=== PATIENT | female | born 1960 | race Caucasian/White ===

== ENCOUNTER 2018-11-15 12:53 | Observation (INO) ==
[2018-11-15] MEDS ORDERED: Ipratropium/Albuterol Neb 3 ML ONE (13:02)
[2018-11-15] MEDS ORDERED: 0.9 % Sodium Chloride 1,000 ML ONE (13:12)
[2018-11-15 13:16] LABS: Basophils % 0.1 %; Eosinophils # 0.1 K/mcL (0.0-0.6); Eosinophils % 1.3 %; Hematocrit 38.2 % (35.3-44.9); Hemoglobin 12.9 g/dL (11.5-15.4); Immature Granulocytes % 0.5 % (0-4); Lymphocytes # 2.1 K/mcL (0.6-4.6); Lymphocytes % 21.7 %; Mean Corpuscular HGB Conc 33.8 g/dL (31.6-35.5); Mean Corpuscular Hemoglobin 28.1 pg (28.0-33.3); Mean Corpuscular Volume 83.2 fL (83.0-100.0); Mean Platelet Volume 9.6 fL (9.4-12.4); Monocytes # 0.4 K/mcL (0.0-1.3); Monocytes % 4.4 %; Neutrophils # 6.9 K/mcL (1.6-8.9); Platelet Count 105 K/mcL (140-400); Red Blood Count 4.59 M/mcL (3.82-4.97); Red Cell Distribution Width 15.1 % (11.5-14.5); White Blood Count 9.6 K/mcL (4.3-11.1)
[2018-11-15] MEDS ORDERED: 0.9 % Sodium Chloride 1,000 ML IVC ONE (13:18)
[2018-11-15 13:29] LABS: INR 1.2
[2018-11-15 13:32] LABS: Activated Partial Thrombo Time 44.2 Seconds (26.0-36.0)
[2018-11-15 13:38] LABS: Alanine Aminotransferase 10 Units/L (7-52); Albumin 4.2 g/dL (3.5-5.7); Albumin/Globulin Ratio 1.6 (1.1-2.2); Alkaline Phosphatase 85 Units/L (34-104); Aspartate Amino Transferase 13 Units/L (13-39); BUN/Creatinine Ratio 21 (6-26); Bilirubin,Direct 0.1 mg/dL (0.0-0.2); Bilirubin,Indirect 0.3 mg/dL (0.0-1.2); Bilirubin,Total 0.4 mg/dL (0.3-1.0); Blood Urea Nitrogen 17 mg/dL (6-20); Calcium 9.1 mg/dL (8.6-10.3); Carbon Dioxide 29 mEq/L (23-29); Chloride 101 mEq/L (98-107); Creatine Kinase 64 Units/L (30-223); Ethanol < 10 mg/dL (Less than 10); Globulin 2.6 g/dL (2.4-3.5); Glucose 161 mg/dL (70-105); Osmolality,Calculated 287 (280-300); Potassium 4.4 mEq/L (3.5-5.1); Sodium 136 mEq/L (136-145); Total Protein 6.8 g/dL (6.4-8.9); Troponin I < 0.03 ng/mL (< 0.04); eGFR For African Americans > 60 (> 60); eGFR For Non-African Americans > 60 (> 60)
[2018-11-15 13:50] LABS: Thyroid Stimulating Hormone 0.517 mcIU/mL (0.340-5.600)
[2018-11-15 14:14] LABS: Acetaminophen < 10 mcg/mL (10-20); Salicylate < 2.5 mg/dL (15.0-30.0)
[2018-11-15 14:31] LABS: Bilirubin,Urine Negative (Negative); Blood,Urine Negative (Negative); Clarity,Urine Cloudy (Clear); Color,Urine Yellow (Yellow); Glucose,Urine (UA) Normal (Normal); Ketones,Urine Negative (Negative); Leukocyte Esterase,Urine Small (Negative); Nitrite,Urine Negative (Negative); PH,Urine 5.5 pH Units (5.0-8.0); Protein,Urine Negative (Neg-Trace); Specific Gravity,Urine 1.024 (1.010-1.025); Urobilinogen,Urine Normal (Normal)
[2018-11-15 14:33] LABS: Bacteria,Urine Moderate per hpf (None-Few); Hyaline Casts,Urine None Seen per lpf (None-Few); Squamous Epithelial Cell,Urine Many per lpf (None-Few)
[2018-11-15 14:45] LABS: Amphetamine Screen,Urine Negative ng/mL (Cutoff=1000); Barbiturate Screen,Urine Negative ng/mL (Cutoff=200); Benzodiazepines Screen,Urine Negative ng/mL (Cutoff=200); Cannabinoid Screen,Urine Negative ng/mL (Cutoff = 50); Cocaine Screen,Urine Negative ng/mL (Cutoff= 300); Opiate Screen,Urine Negative ng/mL (Cutoff=300); Phencyclidine Screen,Urine Negative ng/mL (Cutoff=25)
[2018-11-15 14:51] LABS: VBG HCO3 28 mEq/L (21-27); VBG PCO2 59 mmHg (41-51); VBG PH 7.28 pH Units (7.32-7.42); VBG PO2 45 mmHg (25-50)
--- NOTE | 2018-11-15 15:22 | Emergency Department Note ---
Disposition Clinical Impression: Altered mental status Qualifiers: Altered mental status type: unspecified Qualified Code(s): R41.82 - Altered mental status, unspecified Medication overdose Qualifiers: Encounter type: initial encounter Injury intent: undetermined intent Qualified Code(s): T50.904A - Poisoning by unspecified drugs, medicaments and biological substances, undetermined, initial encounter Disposition: Admitted As Inpatient Condition: Fair Reasons to Return/Additional Instructions: 1. Please follow up with your primary care physician within 2-3 days. 2. Please return to the Emergency Department if symptoms worsen, if you have any other concerns, or for any of the following reasons: Fever greater than 104. vision changes, chest pain, shortness of breath, difficulty breathing, abdominal pain, numbness or tingling, or any weaknesses. 3. Please take medications as prescribed. Referrals: [facility] [Outside] Time of Disposition: 16:07 General Adult HPI - General Chief complaint: ED Overdose Stated complaint: Poss stroke Time Seen by Provider: 11/15/18 13:01 Source: EMS Mode of arrival: EMS Limitations: altered mental status Nursing Notes Reviewed: Yes Vital Signs Reviewed: Yes - History of Present Illness HPI Narrative: Patient is a 58F with PMHx of stroke that has left her with residual deficits of slurring speech presents to the ED for evaluation of AMS on prior to arrival. Family was concerned because patient unresponsive so 911 was called. They are in town from [place], [place] for the harper. Deny any known trauma. Patient is very slurred and denies alcohol but admits to taking Xanax. Pain Scale: 0 - Related Data Allergies Allergy/AdvReac Type Severity Reaction Status Date / Time Zolpidem [From Ambien] AdvReac Itching Verified 11/15/18 13:11 Limitations: ROS unobtainable due to patients medical condition Past Medical History - Past Medical History Medical history: Reports: non-contributory, other - Social History Smoking Status: Current every day smoker Alcohol use: Reports: recent Drug use: Reports: prescription drug abuse Physical Exam - General Limitations: altered mental status General appearance: lethargic - Head Head exam: atraumatic, normocephalic, normal inspection - Eye Eye exam: Present: normal appearance, PERRL, EOMI - ENT ENT exam: normal exam, normal oropharynx, mucous membranes moist - Neck Neck exam: Present: normal inspection, full ROM, trachea midline - Chest Chest inspection: Present: normal inspection, symmetric chest wall rise - Respiratory Respiratory exam: Present: normal lung sounds bilaterally, wheezes (mild throughout). Absent: respiratory distress - Cardiovascular Cardiovascular exam: Present: regular rate, normal rhythm, normal heart sounds - Abdominal Exam Abdominal exam: Present: soft, Non-Tender. Absent: tenderness, distention, guarding, rebound, rigidity - Extremities Exam Extremities exam: Present: normal inspection, full ROM. Absent: tenderness, pedal edema - Back Exam Back exam: Present: normal inspection, full ROM. Absent: tenderness - Expanded Neurological Exam Patient oriented to: Present: person. Absent: place, time Cranial nerves: EOM function (II, III, IV, ): Normal, facial sensation (V): Normal, facial palsy (VII): Normal, gag reflex (IX): Normal, spinal accessory function (XI): Normal, tongue deviation (XII): Normal Cerebellar function: finger to nose: Normal, heel to cool: Normal Motor strength - LUE: 5/5 Motor strength - RUE: 5/5 Motor strength - LLE: 5/5 Motor strength - RLE: 5/5 Sensory exam upper extremity: light touch: Normal Sensory exam lower extremity: light touch: Normal Coma Scale Eye Opening: To Voice Coma Scale Motor Response: Obeys Commands Coma Scale Verbal Response: Confused Coma Scale Total: 13 - Psychiatric Psychiatric exam: Present: normal affect, normal mood - Skin Skin exam: Present: warm, dry, intact, normal color Course Vital Signs Temperature 98.4 F 11/15/18 12:57 Pulse Rate 76 11/15/18 12:57 Respiratory Rate 24 11/15/18 12:57 Blood Pressure 117/80 11/15/18 12:57 O2 Sat by Pulse Oximetry 100 11/15/18 12:57 Temperature 98.4 F 11/15/18 12:57 Pulse Rate 82 11/15/18 15:33 Respiratory Rate 19 11/15/18 15:33 Blood Pressure 100/86 11/15/18 15:33 O2 Sat by Pulse Oximetry 97 11/15/18 14:17 Oxygen Delivery Oxygen Delivery Room Air Medical Decision Making - Medical Records Medical records reviewed: Yes I reviewed the patient's medical records. - Lab Data Lab results reviewed: Yes I reviewed the patient's lab results. Result diagrams: 11/15/18 12:57 11/15/18 12:57 Lab Results 11/15/18 11/15/18 11/15/18 Range/Units 12:57 12:57 12:57 WBC 9.6 (4.3-11.1) K/mcL RBC 4.59 (3.82-4.97) M/mcL Hgb 12.9 (11.5-15.4) g/dL Hct 38.2 (35.3-44.9) % MCV 83.2 (83.0-100.0) fL MCH 28.1 (28.0-33.3) pg MCHC 33.8 (31.6-35.5) g/dL RDW 15.1 H (11.5-14.5) % Plt Count 105 L (140-400) K/mcL MPV 9.6 (9.4-12.4) fL Immature Gran % 0.5 (0-4) % Seg Neutrophils % 72.0 % Lymphocytes % 21.7 % Monocytes % 4.4 % Eosinophils % 1.3 % Basophils % 0.1 % Neutrophils # 6.9 (1.6-8.9) K/mcL Lymphocytes # 2.1 (0.6-4.6) K/mcL Monocytes # 0.4 (0.0-1.3) K/mcL Eosinophils # 0.1 (0.0-0.6) K/mcL Basophils # 0.0 (0.0-0.2) K/mcL PT 14.0 H (9.4-12.1) Seconds INR 1.2 APTT 44.2 H (26.0-36.0) Seconds VBG pH (7.32-7.42) pH Units VBG pCO2 (41-51) mmHg VBG pO2 (25-50) mmHg VBG HCO3 (21-27) mEq/L Carboxyhemoglobin Sodium 136 (136-145) mEq/L Potassium 4.4 (3.5-5.1) mEq/L Chloride 101 (98-107) mEq/L Carbon Dioxide 29 (23-29) mEq/L BUN 17 (6-20) mg/dL Creatinine 0.82 (0.60-1.20) mg/dL Est GFR ( Amer) > 60 (> 60) Est GFR (Non-Af Amer) > 60 (> 60) BUN/Creatinine Ratio 21 (6-26) Glucose 161 H (70-105) mg/dL Calculated Osmolality 287 (280-300) Calcium 9.1 (8.6-10.3) mg/dL Total Bilirubin 0.4 (0.3-1.0) mg/dL Direct Bilirubin 0.1 (0.0-0.2) mg/dL Indirect Bilirubin 0.3 (0.0-1.2) mg/dL AST 13 (13-39) Units/L ALT 10 (7-52) Units/L Alkaline Phosphatase 85 (34-104) Units/L Ammonia (16-53) mcmol/L Creatine Kinase 64 (30-223) Units/L Troponin I < 0.03 (< 0.04) ng/mL Serum Total Protein 6.8 (6.4-8.9) g/dL Albumin 4.2 (3.5-5.7) g/dL Globulin 2.6 (2.4-3.5) g/dL Albumin/Globulin Ratio 1.6 (1.1-2.2) TSH 0.517 (0.340-5.600) mcIU/mL Ur Specimen Adequacy Urine Color (Yellow) Urine Clarity (Clear) Urine pH (5.0-8.0) pH Units Ur Specific [place] (1.010-1.025) Urine Protein (Neg-Trace) mg/dL Urine Glucose (UA) (Normal) mg/dL Urine Ketones (Negative) mg/dL Urine Blood (Negative) Urine Nitrite (Negative) Urine Bilirubin (Negative) Urine Urobilinogen (Normal) mg/dL Ur Leukocyte Esterase (Negative) Urine Microscopic RBC (0-3) per hpf Urine Microscopic WBC (0-3) per hpf Ur Squamous Epith Cells (None-Few) per lpf Urine Bacteria (None-Few) per hpf Hyaline Casts (None-Few) per lpf Ur Culture Indicated? (NO) Salicylates < 2.5 L (15.0-30.0) mg/dL Urine Opiates Screen (Yhnbxi=401) ng/mL Ur Buprenorphine Scrn (Cutoff=5) ng/mL Acetaminophen < 10 L (10-20) mcg/mL Ur Barbiturates Screen (Hyaiga=199) ng/mL Ur Phencyclidine Scrn (Cutoff=25) ng/mL Ur Amphetamines Screen (Xunjky=5289) ng/mL U Benzodiazepines Scrn (Lbecpf=875) ng/mL Urine Cocaine Screen (Cutoff= 300) ng/mL U Marijuana (THC) Screen (Cutoff = 50) ng/mL Ur Drug Screen Interp Ethyl Alcohol < 10 (Less than 10) mg/dL 11/15/18 11/15/18 11/15/18 Range/Units 12:57 12:57 13:19 WBC (4.3-11.1) K/mcL RBC (3.82-4.97) M/mcL Hgb (11.5-15.4) g/dL Hct (35.3-44.9) % MCV (83.0-100.0) fL MCH (28.0-33.3) pg MCHC (31.6-35.5) g/dL RDW (11.5-14.5) % Plt Count (140-400) K/mcL MPV (9.4-12.4) fL Immature Gran % (0-4) % Seg Neutrophils % % Lymphocytes % % Monocytes % % Eosinophils % % Basophils % % Neutrophils # (1.6-8.9) K/mcL Lymphocytes # (0.6-4.6) K/mcL Monocytes # (0.0-1.3) K/mcL Eosinophils # (0.0-0.6) K/mcL Basophils # (0.0-0.2) K/mcL PT (9.4-12.1) Seconds INR APTT (26.0-36.0) Seconds VBG pH (7.32-7.42) pH Units VBG pCO2 (41-51) mmHg VBG pO2 (25-50) mmHg VBG HCO3 (21-27) mEq/L Carboxyhemoglobin TNP 6.1 H Sodium (136-145) mEq/L Potassium (3.5-5.1) mEq/L Chloride (98-107) mEq/L Carbon Dioxide (23-29) mEq/L BUN (6-20) mg/dL Creatinine (0.60-1.20) mg/dL Est GFR ( Amer) (> 60) Est GFR (Non-Af Amer) (> 60) BUN/Creatinine Ratio (6-26) Glucose (70-105) mg/dL Calculated Osmolality (280-300) Calcium (8.6-10.3) mg/dL Total Bilirubin (0.3-1.0) mg/dL Direct Bilirubin (0.0-0.2) mg/dL Indirect Bilirubin (0.0-1.2) mg/dL AST (13-39) Units/L ALT (7-52) Units/L Alkaline Phosphatase (34-104) Units/L Ammonia 31 (16-53) mcmol/L Creatine Kinase (30-223) Units/L Troponin I (< 0.04) ng/mL Serum Total Protein (6.4-8.9) g/dL Albumin (3.5-5.7) g/dL Globulin (2.4-3.5) g/dL Albumin/Globulin Ratio (1.1-2.2) TSH (0.340-5.600) mcIU/mL Ur Specimen Adequacy Urine Color (Yellow) Urine Clarity (Clear) Urine pH (5.0-8.0) pH Units Ur Specific [place] (1.010-1.025) Urine Protein (Neg-Trace) mg/dL Urine Glucose (UA) (Normal) mg/dL Urine Ketones (Negative) mg/dL Urine Blood (Negative) Urine Nitrite (Negative) Urine Bilirubin (Negative) Urine Urobilinogen (Normal) mg/dL Ur Leukocyte Esterase (Negative) Urine Microscopic RBC (0-3) per hpf Urine Microscopic WBC (0-3) per hpf Ur Squamous Epith Cells (None-Few) per lpf Urine Bacteria (None-Few) per hpf Hyaline Casts (None-Few) per lpf Ur Culture Indicated? (NO) Salicylates (15.0-30.0) mg/dL Urine Opiates Screen (Fmwueh=033) ng/mL Ur Buprenorphine Scrn (Cutoff=5) ng/mL Acetaminophen (10-20) mcg/mL Ur Barbiturates Screen (Azejmp=884) ng/mL Ur Phencyclidine Scrn (Cutoff=25) ng/mL Ur Amphetamines Screen (Npmkmz=6071) ng/mL U Benzodiazepines Scrn (Hdjjsf=451) ng/mL Urine Cocaine Screen (Cutoff= 300) ng/mL U Marijuana (THC) Screen (Cutoff = 50) ng/mL Ur Drug Screen Interp Ethyl Alcohol (Less than 10) mg/dL 11/15/18 11/15/18 11/15/18 Range/Units 14:17 14:17 14:49 WBC (4.3-11.1) K/mcL RBC (3.82-4.97) M/mcL Hgb (11.5-15.4) g/dL Hct (35.3-44.9) % MCV (83.0-100.0) fL MCH (28.0-33.3) pg MCHC (31.6-35.5) g/dL RDW (11.5-14.5) % Plt Count (140-400) K/mcL MPV (9.4-12.4) fL Immature Gran % (0-4) % Seg Neutrophils % % Lymphocytes % % Monocytes % % Eosinophils % % Basophils % % Neutrophils # (1.6-8.9) K/mcL Lymphocytes # (0.6-4.6) K/mcL Monocytes # (0.0-1.3) K/mcL Eosinophils # (0.0-0.6) K/mcL Basophils # (0.0-0.2) K/mcL PT (9.4-12.1) Seconds INR APTT (26.0-36.0) Seconds VBG pH 7.28 L (7.32-7.42) pH Units VBG pCO2 59 H (41-51) mmHg VBG pO2 45 (25-50) mmHg VBG HCO3 28 H (21-27) mEq/L Carboxyhemoglobin Sodium (136-145) mEq/L Potassium (3.5-5.1) mEq/L Chloride (98-107) mEq/L Carbon Dioxide (23-29) mEq/L BUN (6-20) mg/dL Creatinine (0.60-1.20) mg/dL Est GFR ( Amer) (> 60) Est GFR (Non-Af Amer) (> 60) BUN/Creatinine Ratio (6-26) Glucose (70-105) mg/dL Calculated Osmolality (280-300) Calcium (8.6-10.3) mg/dL Total Bilirubin (0.3-1.0) mg/dL Direct Bilirubin (0.0-0.2) mg/dL Indirect Bilirubin (0.0-1.2) mg/dL AST (13-39) Units/L ALT (7-52) Units/L Alkaline Phosphatase (34-104) Units/L Ammonia (16-53) mcmol/L Creatine Kinase (30-223) Units/L Troponin I (< 0.04) ng/mL Serum Total Protein (6.4-8.9) g/dL Albumin (3.5-5.7) g/dL Globulin (2.4-3.5) g/dL Albumin/Globulin Ratio (1.1-2.2) TSH (0.340-5.600) mcIU/mL Ur Specimen Adequacy See below A Urine Color Yellow (Yellow) Urine Clarity Cloudy A (Clear) Urine pH 5.5 (5.0-8.0) pH Units Ur Specific [place] 1.024 (1.010-1.025) Urine Protein Negative (Neg-Trace) mg/dL Urine Glucose (UA) Normal (Normal) mg/dL Urine Ketones Negative (Negative) mg/dL Urine Blood Negative (Negative) Urine Nitrite Negative (Negative) Urine Bilirubin Negative (Negative) Urine Urobilinogen Normal (Normal) mg/dL Ur Leukocyte Esterase Small H (Negative) Urine Microscopic RBC 5-15 H (0-3) per hpf Urine Microscopic WBC 5-15 H (0-3) per hpf Ur Squamous Epith Cells Many H (None-Few) per lpf Urine Bacteria Moderate H (None-Few) per hpf Hyaline Casts None Seen (None-Few) per lpf Ur Culture Indicated? YES A (NO) Salicylates (15.0-30.0) mg/dL Urine Opiates Screen Negative (Xeuhmp=900) ng/mL Ur Buprenorphine Scrn Negative (Cutoff=5) ng/mL Acetaminophen (10-20) mcg/mL Ur Barbiturates Screen Negative (Hctucv=558) ng/mL Ur Phencyclidine Scrn Negative (Cutoff=25) ng/mL Ur Amphetamines Screen Negative (Eqdjou=9424) ng/mL U Benzodiazepines Scrn Negative (Yvtoac=296) ng/mL Urine Cocaine Screen Negative (Cutoff= 300) ng/mL U Marijuana (THC) Screen Negative (Cutoff = 50) ng/mL Ur Drug Screen Interp See Below Ethyl Alcohol (Less than 10) mg/dL - Radiology Data Radiology results reviewed: Yes I reviewed the patient's radiology results. Chest X-Ray 11/15/18 13:03 IMPRESSION: Left basilar airspace opacity which may represent a developing infiltrate. Follow-up to resolution is recommended. D/ / Stefani Moon MD / Stefani Moon MD Interpreting Provider: Stefani Moon MD Head CT 11/15/18 13:03 IMPRESSION: No acute intracranial abnormality. Mild global parenchymal atrophy and chronic microvascular ischemic changes. Mild left maxillary and sphenoid sinusitis. D/ / 11/15/2018 13:43:15 Adama Katz MD / grayson Interpreting Provider: Adama Katz MD - EKG Data EKG #1 EKG attestation: Yes I reviewed and interpreted this EKG. EKG results narrative: EKG done at 13:02 shows sinus rhythm at a rate of 75 bpm. Normal axis. Critical Care Time Total Critical Care Time: 35 Attestation: CRITICAL CARE TIME OF 35 MINUTES PERFORMING THIS INDIVIDUAL OUTSIDE OF SEPARATELY BILLABLE PROCEDURES. THIS INCLUDES BEDSIDE EVALUATION, INTERPRETATION OF EKG AND LAB TESTS AND CONSULTATIONS. Attestation Statement - Attestation Attestation: I examined this patient and my medical decision-making was reviewed with the Resident Physician. I agree with the documented findings, disposition and treatment plan as described except to the extent set forth below. Patient is very somnolent, she does have slurred speech but this is apparently normal. Patient is unsteady here in the emergency room, the patient is unsafe to go home. The patient is I believe otherwise unable to make medical decisions at this point in time. Patient is on apparently significant medications including muscle relaxants. Patient may have overdosed on those. The patient was initially minimally responsive upon arrival. The patient was weaned off oxygen, however she still had desaturations at times into the 80s. Patient at this point in time is going to be admitted for further evaluation. I do believe that her mental status changes most likely secondary to her medications, possibly benzodiazepines. The patient at this point in time is going to be admitted in otherwise stable condition. Family was also here and agree the patient cannot be going back with him because she is too unstable and unsafe. CRITICAL CARE TIME OF 35 MINUTES PERFORMING THIS INDIVIDUAL OUTSIDE OF SEPARATELY BILLABLE PROCEDURES. THIS INCLUDES BEDSIDE EVALUATION, INTE RPRETATION OF EKG AND LAB TESTS AND CONSULTATIONS.
[2018-11-15] MEDS ORDERED: Ondansetron 4 MG/2 ML VIAL IVP PRN (18:03)
[2018-11-15] MEDS ORDERED: Naloxone 0.4 MG/ML INJ IVP PRN (18:03)
--- NOTE | 2018-11-15 18:12 | Internal Med History&Physical ---
Date of Encounter: 11/15/18 Time of Encounter: 18:07 Internal Medicine - H&P: HPI Chief complaint: Patient was brought in by the squad for unresponsiveness Admitted From: Emergency Dept Plans for Post Hospital Care: Home History of present illness: Ms. Morejon is a 58 year old female with a history of liver transplant on immunosuppressant/antirejection medications, history of stroke with left-sided deficits and baseline slow speech was brought in by EMS after she was noted to be unresponsive. Patient currently is hypersomnolent and cannot provide any history. Per the ED reports she is out of town from [place] visiting friends attending the [employer]. According to the ED physician, her stated she is always drowsy. The physician stated that EMS officers at the [employer] show decided to bring her to the ED after she was noted to have slumped down and that her initially was hesitant in bringing her to be evaluated citing this was typical for her indicating she has polypharmacy. Among her Initial work up at the ED-Vitals were stable CBC was unremarkable as well as BMP. Her venous blood draw was mildly hypercapnic, and her carboxyhemoglobin level was mildly elevated. LFTs were also unremarkable including normal levels of ammonia and TSH was within normal limits. Patient's urine pathology screen was also unrevealing so also was a blood alcohol level. Urine analysis was unremarkable. Her chest x-ray is suggestive of developing infiltrate, however a CT head without contrast revealed no acute intracranial abnormality. Patient was noted by the ED staff to have ataxic gait and has been placed on one-to-one supervision Past Med Surg Social Fam HX - Past Medical History Medical history: non-contributory, other Additional medical history: unknown - Social History Smoking Status: Current every day smoker Alcohol use: recent Drug use: prescription drug abuse Internal Medicine - H&P: Meds Acetaminophen/Butalbital/Caffe [Fioricet] 1 each PO Q8H PRN 11/15/18 [History] Albuterol Sulfate [Proventil Inhaler] 0 puff IH Q6HR PRN 11/15/18 [History] Budesonide/Formoterol 80/4.5 [Symbicort 80/4.5] 2 puff IH BID 11/15/18 [History] Calcium Carbonate/Vitamin D3 [Calcium 500 + Vit D 200 Caplet] 1 each PO BID 11/15/18 [History] Carisoprodol [Soma] 350 mg PO TID PRN 11/15/18 [History] Fluticasone Propionate Nasal [Flonase] 100 mcg NS DAILY 11/15/18 [History] Insulin Degludec [Tresiba Flextouch U-200] 60 unit SQ QAM 11/15/18 [History] Insulin LISPRO [Humalog Kwikpen U-100] 0 unit SQ TIDWM 11/15/18 [History] Levothyroxine [Synthroid] 125 mcg PO 0630 11/15/18 [History] Losartan [Cozaar] 25 mg PO DAILY 11/15/18 [History] Multivit with Iron,Hematinic [Central-Dhara] 1 each PO DAILY 11/15/18 [History] Mycophenolate Mofetil [Cellcept] 500 mg PO BID 11/15/18 [History] Pantoprazole Sodium [Protonix] 40 mg PO BID 11/15/18 [History] Pravastatin Sodium [Pravachol] 80 mg PO DAILY 11/15/18 [History] Pregabalin [Lyrica] 150 mg PO TID 11/15/18 [History] Silver Sulfadiazine 2 gm TP BID 11/15/18 [History] Tacrolimus [Prograf] 3 mg PO BID 11/15/18 [History] amLODIPine [Norvasc] 10 mg PO DAILY 11/15/18 [History] lamoTRIgine [Subvenite] 50 mg PO TID 11/15/18 [History] Allergy/AdvReac Type Severity Reaction Status Date / Time Zolpidem [From Ambien] AdvReac Itching Verified 11/15/18 13:11 All Systems PM: A 10-system review of systems was performed and is negative for pertinent findings except as documented above in the HPI. Review of systems: Unable to obtain patient is encephalopathic and hypersomnolent - Constitutional Vitals: Temp Pulse Resp BP Pulse Ox 97.6 F 91 18 100/86 99 11/15/18 17:46 11/15/18 17:46 11/15/18 17:46 11/15/18 17:46 11/15/18 17:46 Exam: GENERAL: Hypersomnolent female arousable but cannot stay awake SKIN: No skin lesions or rashes, non-jaundiced EYES: Pinpoint pupils but reactive to light HENT: Head atraumatic, no facial asymmetry, palpation of the frontal and maxillary sinus did not elicit pain, unable to fully visualize oropharynx NECK: No cervical lymphadenopathy, trachea midline LUNGS: Diminished breath vesicular breath sounds, clear to auscultation, no wheeze, rhonchi, rales or crackles. Non labored respirations HEART: Normal rate and rhythm, no murmurs or rubs ABDOMEN: Obese soft, palpation of the abdomen elevated painful response but no rebound or guarding, non-distended, bowel sounds x 4 normoactive, healed large right sided to midline surgical abdominal scar noted EXTRMITIES: No LE asymmetry, No LE edema, pedal pulses 1+ and radial pulses 2 + and equal bilaterally NEURO: Speech is slurred, patient unable to fully cooperate with the neurologic exam, response to painful stimuli: PSYCH:deferred Internal Med - H&P Results - Labs CBC & Chem 7: 11/15/18 12:57 11/15/18 12:57 Labs: Short CBC 11/15/18 Range/Units 12:57 WBC 9.6 (4.3-11.1) K/mcL Hgb 12.9 (11.5-15.4) g/dL Hct 38.2 (35.3-44.9) % Plt Count 105 L (140-400) K/mcL Neutrophils # 6.9 (1.6-8.9) K/mcL BMP 11/15/18 12:57 Sodium 136 Potassium 4.4 Chloride 101 Carbon Dioxide 29 BUN 17 Creatinine 0.82 Glucose 161 H Calcium 9.1 Cardiac Enzymes 11/15/18 Range/Units 12:57 Troponin I < 0.03 (< 0.04) ng/mL Liver Function 11/15/18 Range/Units 12:57 Total Bilirubin 0.4 (0.3-1.0) mg/dL Direct Bilirubin 0.1 (0.0-0.2) mg/dL AST 13 (13-39) Units/L ALT 10 (7-52) Units/L Alkaline Phosphatase 85 (34-104) Units/L Albumin 4.2 (3.5-5.7) g/dL Urine 11/15/18 Range/Units 14:17 Urine Color Yellow (Yellow) Urine Clarity Cloudy A (Clear) Urine pH 5.5 (5.0-8.0) pH Units Ur Specific [place] 1.024 (1.010-1.025) Urine Protein Negative (Neg-Trace) mg/dL Urine Glucose (UA) Normal (Normal) mg/dL - ABG Interpretation ABG results: 11/15/18 14:49 VBG pH 7.28 L VBG pCO2 59 H VBG pO2 45 VBG HCO3 28 H - Impressions ITS Impressions Chest X-Ray 11/15/18 13:03 IMPRESSION: Left basilar airspace opacity which may represent a developing infiltrate. Follow-up to resolution is recommended. D/ / Stefani Moon MD / Stefani Moon MD Interpreting Provider: Stefani Moon MD Head CT 11/15/18 13:03 IMPRESSION: No acute intracranial abnormality. Mild global parenchymal atrophy and chronic microvascular ischemic changes. Mild left maxillary and sphenoid sinusitis. D/ / 11/15/2018 13:43:15 Adama Katz MD / grayson Interpreting Provider: Adama Katz MD - Assessment and Plan (1) Acute encephalopathy Current Visit: Yes Status: Acute Assessment and plan: Workup so far has been unrevealing including CT of the head ammonia level TSH basic metabolic panel and CBC. VBG also unremarkable Suspect metabolic encephalopathy. per subjective information there is a history of stroke with focal deficits although no documented past medical history since she is visiting from out of town. We will obtain a MRI of the head and brain as well as CT of the abdomen and pelvis given a history of liver transplant and the patient elicited painful response with abdomen exam. She was placed on one-to-one (2) Polypharmacy Current Visit: Yes Status: Acute Assessment and plan: per conversation with the ED staff, there is concern for polypharmacy (3) DVT prophylaxis Current Visit: Yes Status: Acute Assessment and plan: Heparin subcutaneous (4) Medication overdose Current Visit: Yes Status: Acute Assessment and plan: Urine toxicology was negative there is concern for intentional OD and suicide, she will be placed on medical hold Qualifiers: Encounter type: initial encounter Injury intent: undetermined intent Qualified Code(s): T50.904A - Poisoning by unspecified drugs, medicaments and biological substances, undetermined, initial encounter (5) Hx of liver transplant Current Visit: Yes Status: Acute Assessment and plan: She does have noticeable surgical scars on exam we will continue her antirejection medications okay to use home meds - Time Spent With Patient Total time spent is greater than 50% in coordination of care (as documented) at patient's floor/unit and/or counseling patient:
[2018-11-15] MEDS ORDERED: Dextrose Gel 15 GM/37.5 ML TUBE PO PRN ×2 (18:42)
[2018-11-15] MEDS ORDERED: D5% in Water 1,000 ML IVC PRN (18:42)
[2018-11-15] MEDS: Silver Sulfadiazine 50 GM TUBE TP SCH (21:28)
[2018-11-15] MEDS: TACROLIMUS 3 MG PO SCH ×2 (21:28→23:25)
[2018-11-15] MEDS: lamoTRIgine 25 MG TABLET PO SCH (21:28)
[2018-11-15] MEDS: Pregabalin 75 MG CAPSULE PO SCH ×2 (21:28→23:25)
[2018-11-15] MEDS: *HR* Heparin 5,000 UNIT/ML VIAL SQ SCH (21:29)
[2018-11-15] MEDS: Insulin LISPRO 300 UNITS/3 ML VIAL SQ SCH (23:58)
[2018-11-16] MEDS: *HR* Dextrose 50 % in Water (Syg) 50 ML SYRINGE IVP PRN ×2 (03:08→06:06)
[2018-11-16] MEDS ORDERED: Haloperidol Lactate 5 MG/ML VIAL IVP ONE (04:42)
[2018-11-16] MEDS ORDERED: *HR* Promethazine 25 MG/ML VIAL IVP ONE (04:42)
[2018-11-16] MEDS: *HR* Heparin 5,000 UNIT/ML VIAL SQ SCH ×3 (05:06→20:09)
[2018-11-16] MEDS: Insulin LISPRO 300 UNITS/3 ML VIAL SQ SCH ×4 (05:28→23:25)
[2018-11-16 05:31] LABS: Basophils % 0.2 %
[2018-11-16 05:33] LABS: Eosinophils # 0.1 K/mcL (0.0-0.6); Eosinophils % 1.6 %; Hematocrit 38.9 % (35.3-44.9); Hemoglobin 12.8 g/dL (11.5-15.4); Immature Granulocytes % 0.3 % (0-4); Immature Platelets 2.2 % (1.1-6.1); Lymphocytes # 1.3 K/mcL (0.6-4.6); Lymphocytes % 19.6 %; Mean Corpuscular HGB Conc 32.9 g/dL (31.6-35.5); Mean Corpuscular Hemoglobin 27.5 pg (28.0-33.3); Mean Corpuscular Volume 83.5 fL (83.0-100.0); Mean Platelet Volume 10.2 fL (9.4-12.4); Monocytes # 0.3 K/mcL (0.0-1.3); Monocytes % 4.7 %; Neutrophils # 4.7 K/mcL (1.6-8.9); Red Blood Count 4.66 M/mcL (3.82-4.97); Segmented Neutrophils % 73.6 %; White Blood Count 6.4 K/mcL (4.3-11.1)
[2018-11-16 05:37] LABS: Platelet Count 89 K/mcL (140-400)
[2018-11-16 05:51] LABS: Alanine Aminotransferase 9 Units/L (7-52); Albumin 4.1 g/dL (3.5-5.7); Albumin/Globulin Ratio 1.4 (1.1-2.2); Alkaline Phosphatase 86 Units/L (34-104); Aspartate Amino Transferase 13 Units/L (13-39); BUN/Creatinine Ratio 16 (6-26); Bilirubin,Direct 0.1 mg/dL (0.0-0.2); Bilirubin,Indirect 0.3 mg/dL (0.0-1.2); Bilirubin,Total 0.4 mg/dL (0.3-1.0); Blood Urea Nitrogen 10 mg/dL (6-20); Calcium 9.1 mg/dL (8.6-10.3); Carbon Dioxide 26 mEq/L (23-29); Chloride 107 mEq/L (98-107); Globulin 2.9 g/dL (2.4-3.5); Glucose 72 mg/dL (70-105); Magnesium 1.5 mg/dL (1.6-2.6); Osmolality,Calculated 294 (280-300); Potassium 3.5 mEq/L (3.5-5.1); Sodium 143 mEq/L (136-145); eGFR For African Americans > 60 (> 60); eGFR For Non-African Americans > 60 (> 60)
[2018-11-16] MEDS: lamoTRIgine 25 MG TABLET PO SCH ×3 (07:41→20:09)
[2018-11-16] MEDS: Cholecalciferol (D-3) 1,000 UNIT (25MCG) TABLET PO SCH (07:41)
[2018-11-16] MEDS: Pregabalin 75 MG CAPSULE PO SCH ×3 (07:42→20:10)
[2018-11-16] MEDS: Multivit/Ca/Min/Fe/FA 1 TAB TABLET PO SCH (07:42)
[2018-11-16] MEDS: Silver Sulfadiazine 50 GM TUBE TP SCH ×2 (07:42→20:13)
[2018-11-16] MEDS: amLODIPine 5 MG TABLET PO SCH (07:42)
[2018-11-16 08:00] LABS: Estimated Average Glucose 157 mg/dl
[2018-11-16] MEDS ORDERED: D5% in 0.45% NACL w KCl 30 MEQ/1,000 ML MLS IVC SCH (08:30)
[2018-11-16] MEDS: TACROLIMUS 3 MG PO SCH ×2 (08:59→20:10)
--- NOTE | 2018-11-16 09:08 | Internal Med Progress Note ---
Hospitalist Progress Note - Encounter Date of Encounter: 11/16/18 Time of Encounter: 09:03 - Subjective Interval History: Ms Morejon per staff yesterday refused diagnostic workup MRI ABG and Accu-Cheks. This morning she is more alert and oriented however has no recollection of the activities that occurred yesterday. She did states she has been going to do rodeo for the past 10 years and seems to be infer that things are not great with her - marital issues. She at present denies any suicidality or homicidality ideations. She has been hypoglycemic overnight requiring multiple doses of dextrose and when this was brought up with the patient indicating if she may have injected too much insulin she said maybe she does use both short- acting Humalog and long-acting Tresiba but denies any visual difficulties in administering her insulin or purposely overdosed on insulin. She does confirm prior history of stroke with neuro-logical deficits of speech impediment and left-sided weakness GEN: Denies fever, chills or malaise HEENT: Denies headache blurriness, or dysphagia RESP: Denies SOB or cough CV: Denies chest pain or palpitations GI: Denies Nausea, vomiting, diarrhea or constipation Reviewed current in hospital medications with modifications see orders Reviewed Routine labs - Exam Vitals: Temp Pulse Resp BP Pulse Ox 97.8 F 81 18 123/79 94 11/16/18 07:34 11/16/18 07:34 11/16/18 07:34 11/16/18 07:34 11/16/18 07:34 Exam: GEN: NAD, A&O x 3, still appears sleepy this morning but able to converse appropriately much improve slurred speech SKIN: Vesta warm acyanotic not jaundice HEART: RRR, no murmurs LUNGS: CTA no wheeze or crackles, overall non labored ABDOMEN; Soft, non tender or distended, BS x 4 normactive, healed large right through midline surgical scar noted EXT: No LE edema, Pedal pulses 1+, radial pulses 2+ PSYCH: Mood and affect is appropriate - Assessment and Plan (1) Hypoglycemia due to insulin Current Visit: Yes Status: Acute Assessment and Plan: Patient's blood glucose was as low as 66 at 2 AM she was administered dextrose improved to 134 at 3:30 and then drop down to 67 at 6 AM indicative of long acting insulin overdose. We will put patient on a D5 half normal saline with 30 of potassium IV fluid at 75 continue Accu-Cheks. Patient did admit that she may have had given herself too much insulin but would not relate this was intent ional or unintentional. Given her history of polypharmacy, in a stuporous state of mind she may have accidentally administered to much insulin (2) Acute encephalopathy Current Visit: Yes Status: Acute Assessment and Plan: Given the recent development of hypoglycemia overnight likely metabolic encephalopathy from insulin overdose which could be intentional or accidental. Improvement appears to be back to baseline, of note yesterday she refused MRI. Workup so far has been unrevealing including CT of the head ammonia level TSH basic metabolic panel and CBC. VBG also unremarkable Suspect metabolic encephalopathy. per subjective information there is a history of stroke with focal deficits although no documented past medical history since she is visiting from out of town. We will obtain a MRI of the head and brain as well as CT of the abdomen and pelvis given a history of liver transplant and the patient elicited painful response with abdomen exam. She was placed on one-to-one (3) Medication overdose Current Visit: Yes Status: Acute Assessment and Plan: Given the findings of hypoglycemia overnight as stated above it is quite likely patient may have intentionally or accidentally administered to much insulin. Urine toxicology was negative there is concern for intentional OD and suicide, she will be placed on medical hold, pending psych consult discussed case with the psychiatrist they will see patient today, appreciate psych input (4) Polypharmacy Current Visit: Yes Status: Acute Assessment and Plan: per conversation with the ED staff, there is concern for polypharmacy (5) DVT prophylaxis Current Visit: Yes Status: Acute Assessment and Plan: Heparin subcutaneous (6) Hx of liver transplant Current Visit: Yes Status: Acute Assessment and Plan: She does have noticeable surgical scars on exam we will continue her antirejection medications okay to use home meds, given her liver transplant she stated she never drinks alcohol, alcohol level was unremarkable on admission (7) Diabetes Current Visit: Yes Status: Acute Assessment and Plan: A1c was 7.1, as aforementioned she was hypoglycemic overnight continue insulin per protocol - Time Spent with Patient Total time spent is greater than 50% in coordination of care (as documented) at patient's floor/unit and/or counseling patient: Internal Medicine: Result - Labs CBC & Chem 7: 11/16/18 05:17 11/16/18 05:17 Labs: Short CBC 11/15/18 11/16/18 Range/Units 12:57 05:17 WBC 9.6 6.4 (4.3-11.1) K/mcL Hgb 12.9 12.8 (11.5-15.4) g/dL Hct 38.2 38.9 (35.3-44.9) % Plt Count 105 L 89 L (140-400) K/mcL Neutrophils # 6.9 4.7 (1.6-8.9) K/mcL BMP 11/15/18 11/16/18 12:57 05:17 Sodium 136 143 Potassium 4.4 3.5 Chloride 101 107 Carbon Dioxide 29 26 BUN 17 10 Creatinine 0.82 0.62 Glucose 161 H 72 Calcium 9.1 9.1 Cardiac Enzymes 11/15/18 Range/Units 12:57 Troponin I < 0.03 (< 0.04) ng/mL Liver Function 11/15/18 11/16/18 Range/Units 12:57 05:17 Total Bilirubin 0.4 0.4 (0.3-1.0) mg/dL Direct Bilirubin 0.1 0.1 (0.0-0.2) mg/dL AST 13 13 (13-39) Units/L ALT 10 9 (7-52) Units/L Alkaline Phosphatase 85 86 (34-104) Units/L Albumin 4.2 4.1 (3.5-5.7) g/dL Urine 11/15/18 Range/Units 14:17 Urine Color Yellow (Yellow) Urine Clarity Cloudy A (Clear) Urine pH 5.5 (5.0-8.0) pH Units Ur Specific [place] 1.024 (1.010-1.025) Urine Protein Negative (Neg-Trace) mg/dL Urine Glucose (UA) Normal (Normal) mg/dL - ABG Interpretation ABG results: PT/INR, D-dimer PT 14.0 Seconds (9.4-12.1) H 11/15/18 12:57 - Impressions Impressions Chest X-Ray 11/15/18 13:03 IMPRESSION: Left basilar airspace opacity which may represent a developing infiltrate. Follow-up to resolution is recommended. D/ / Stefani Moon MD / Stefani Moon MD Interpreting Provider: Stefani Moon MD Head CT 11/15/18 13:03 IMPRESSION: No acute intracranial abnormality. Mild global parenchymal atrophy and chronic microvascular ischemic changes. Mild left maxillary and sphenoid sinusitis. 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
--- NOTE | 2018-11-16 09:18 | Consult Note ---
Date of Encounter: 11/16/18 Time of Encounter: 09:18 Assessment & Recommendation (1) Metabolic encephalopathy Current visit: Yes Status: Acute Assessment & Recommendation: Patient was unresponsive at the time of hospital admission and noted to be significantly hypoglycemic overnight. On evaluation this morning, patient is very somnolent, though she did wake to touch. Upon waking, patient was unaware of where she was. She reports that she is under the care of a psychiatrist in [facility], who she sees monthly. She reports history of anxiety and depression, but states that her symptoms are well-controlled with her current medicine regimen. Patient denies any suicidal or homicidal ideation. Recommendations: - Continue treatment for underlying metabolic encephalopathy per primary team. - Further recommendations per attending psychiatrist's attestation. History of Present Illness Requesting Physician: Newton Nichols Reason for consult: Reported suicidal ideation History of present illness: Ms. Morejon is a 58 year old female who was admitted to the hospital after being found unresponsive. Patient reportedly lives in [place], and is in town to attend the radio show. She does have a medical history of liver transplant on immunosuppressive/antirejection drug therapy and stroke. Patient remained very somnolent and difficult to wake; at the time of admission, workup was unrevealing as to the cause of her encephalopathy. Overnight, patient was noted to be significantly hypoglycemic, and there were concerns that she may have accidentally or intentionally taken too much of her insulin. Review of nursing notes overnight reveals that patient reportedly stated she did not care if she fell last night as she "wanted to kill herself anyway". Holdrege slip was completed due to concerns for suicidal ideation, prompting psychiatry consult. On evaluation this morning, patient is very difficult week, though she does wake to touch. She endorses a history of anxiety and depression which is managed by a psychiatrist in [place] that she sees on a monthly basis. Patient is unable to state where she is at this time, and does inquire as to where she is. She denies any suicidal or homicidal ideation. CC: Newton Nichols Past Med Surg Social Fam HX - Past Medical History Medical history: non-contributory, other - Social History Smoking Status: Current every day smoker Alcohol use: recent Drug use: prescription drug abuse Medications & Allergies Acetaminophen/Butalbital/Caffe [Fioricet] 1 each PO Q8H PRN 11/15/18 [History] Albuterol Sulfate [Proventil Inhaler] 0 puff IH Q6HR PRN 11/15/18 [History] Budesonide/Formoterol 80/4.5 [Symbicort 80/4.5] 2 puff IH BID 11/15/18 [History] Calcium Carbonate/Vitamin D3 [Calcium 500 + Vit D 200 Caplet] 1 each PO BID 11/15/18 [History] Carisoprodol [Soma] 350 mg PO TID PRN 11/15/18 [History] Fluticasone Propionate Nasal [Flonase] 100 mcg NS DAILY 11/15/18 [History] Insulin Degludec [Tresiba Flextouch U-200] 60 unit SQ QAM 11/15/18 [History] Insulin LISPRO [Humalog Kwikpen U-100] 0 unit SQ TIDWM 11/15/18 [History] Levothyroxine [Synthroid] 125 mcg PO 0630 11/15/18 [History] Losartan [Cozaar] 25 mg PO DAILY 11/15/18 [History] Multivit with Iron,Hematinic [Central-Dhara] 1 each PO DAILY 11/15/18 [History] Mycophenolate Mofetil [Cellcept] 500 mg PO BID 11/15/18 [History] Pantoprazole Sodium [Protonix] 40 mg PO BID 11/15/18 [History] Pravastatin Sodium [Pravachol] 80 mg PO DAILY 11/15/18 [History] Pregabalin [Lyrica] 150 mg PO TID 11/15/18 [History] Silver Sulfadiazine 2 gm TP BID 11/15/18 [History] Tacrolimus [Prograf] 3 mg PO BID 11/15/18 [History] amLODIPine [Norvasc] 10 mg PO DAILY 11/15/18 [History] lamoTRIgine [Subvenite] 50 mg PO TID 11/15/18 [History] Allergy/AdvReac Type Severity Reaction Status Date / Time Zolpidem [From Ambien] AdvReac Itching Verified 11/15/18 13:11 Review of Systems ROS unobtainable: due to patient condition Constitutional: Denies: fever, chills Cardiovascular: Denies: chest pain Neurological: Denies: headache Psychiatric: Reports: depression, anxiety. Denies: suicidal ideation, homicidal ideation Psychiatry Exam - Constitutional Vitals: Temp Pulse Resp BP Pulse Ox 97.8 F 81 18 123/79 94 11/16/18 07:34 11/16/18 07:34 11/16/18 07:34 11/16/18 07:34 11/16/18 07:34 General appearance: age & developmentally appropriate, unkempt, obese - Musculoskeletal Strength & Tone: normal for patient (grossly normal on evaluation) - Psychiatric Patient Orientation: Yes Person, Yes Time, Yes Place Level of alertness: Sedated Behavior: calm Psychomotor activity: Slowed Eye Contact: Minimal Contact Speech Volume: Normal Speech pattern: normal rate, normal rhythm, normal tone, slurred Language & Vocabulary: consistent with education Results - Drug Levels and Toxicology Drug Levels and Toxicology: Drug Levels and Toxicity 11/15/18 11/15/18 12:57 14:17 Urine Opiates Screen Negative Acetaminophen < 10 L Ur Barbiturates Screen Negative Ur Phencyclidine Scrn Negative Ur Amphetamines Screen Negative U Benzodiazepines Scrn Negative Urine Cocaine Screen Negative U Marijuana (THC) Screen Negative Ethyl Alcohol < 10 - Labs Labs: Laboratory Last Values WBC 6.4 K/mcL (4.3-11.1) 11/16/18 05:17 RBC 4.66 M/mcL (3.82-4.97) 11/16/18 05:17 Hgb 12.8 g/dL (11.5-15.4) 11/16/18 05:17 Hct 38.9 % (35.3-44.9) 11/16/18 05:17 MCV 83.5 fL (83.0-100.0) 11/16/18 05:17 MCH 27.5 pg (28.0-33.3) L 11/16/18 05:17 MCHC 32.9 g/dL (31.6-35.5) 11/16/18 05:17 RDW 15.0 % (11.5-14.5) H 11/16/18 05:17 Plt Count 89 K/mcL (140-400) L 11/16/18 05:17 MPV 10.2 fL (9.4-12.4) 11/16/18 05:17 Immature Gran % 0.3 % (0-4) 11/16/18 05:17 Seg Neutrophils % 73.6 % 11/16/18 05:17 Lymphocytes % 19.6 % 11/16/18 05:17 Monocytes % 4.7 % 11/16/18 05:17 Eosinophils % 1.6 % 11/16/18 05:17 Basophils % 0.2 % 11/16/18 05:17 Neutrophils # 4.7 K/mcL (1.6-8.9) 11/16/18 05:17 Lymphocytes # 1.3 K/mcL (0.6-4.6) 11/16/18 05:17 Monocytes # 0.3 K/mcL (0.0-1.3) 11/16/18 05:17 Eosinophils # 0.1 K/mcL (0.0-0.6) 11/16/18 05:17 Basophils # 0.0 K/mcL (0.0-0.2) 11/16/18 05:17 Immature Plt Fraction 2.2 % (1.1-6.1) 11/16/18 05:17 PT 14.0 Seconds (9.4-12.1) H 11/15/18 12:57 INR 1.2 11/15/18 12:57 APTT 44.2 Seconds (26.0-36.0) H 11/15/18 12:57 VBG pH 7.28 pH Units (7.32-7.42) L 11/15/18 14:49 VBG pCO2 59 mmHg (41-51) H 11/15/18 14:49 VBG pO2 45 mmHg (25-50) 11/15/18 14:49 VBG HCO3 28 mEq/L (21-27) H 11/15/18 14:49 Carboxyhemoglobin 6.1 % (0-5) H 11/15/18 13:19 Sodium 143 mEq/L (136-145) 11/16/18 05:17 Potassium 3.5 mEq/L (3.5-5.1) 11/16/18 05:17 Chloride 107 mEq/L (98-107) 11/16/18 05:17 Carbon Dioxide 26 mEq/L (23-29) 11/16/18 05:17 BUN 10 mg/dL (6-20) 11/16/18 05:17 Creatinine 0.62 mg/dL (0.60-1.20) 11/16/18 05:17 Est GFR ( Amer) > 60 (> 60) 11/16/18 05:17 Est GFR (Non-Af Amer) > 60 (> 60) 11/16/18 05:17 BUN/Creatinine Ratio 16 (6-26) 11/16/18 05:17 Glucose 72 mg/dL (70-105) 11/16/18 05:17 Est Mean Plasma Glucose 157 mg/dl 11/16/18 05:17 Hemoglobin A1c 7.1 % (-5.6) H 11/16/18 05:17 Calculated Osmolality 294 (280-300) 11/16/18 05:17 Calcium 9.1 mg/dL (8.6-10.3) 11/16/18 05:17 Magnesium 1.5 mg/dL (1.6-2.6) L 11/16/18 05:17 Total Bilirubin 0.4 mg/dL (0.3-1.0) 11/16/18 05:17 Direct Bilirubin 0.1 mg/dL (0.0-0.2) 11/16/18 05:17 Indirect Bilirubin 0.3 mg/dL (0.0-1.2) 11/16/18 05:17 AST 13 Units/L (13-39) 11/16/18 05:17 ALT 9 Units/L (7-52) 11/16/18 05:17 Alkaline Phosphatase 86 Units/L (34-104) 11/16/18 05:17 Ammonia 43 mcmol/L (16-53) 11/16/18 05:17 Creatine Kinase 64 Units/L (30-223) 11/15/18 12:57 Troponin I < 0.03 ng/mL (< 0.04) 11/15/18 12:57 Serum Total Protein 7.0 g/dL (6.4-8.9) 11/16/18 05:17 Albumin 4.1 g/dL (3.5-5.7) 11/16/18 05:17 Globulin 2.9 g/dL (2.4-3.5) 11/16/18 05:17 Albumin/Globulin Ratio 1.4 (1.1-2.2) 11/16/18 05:17 TSH 0.517 mcIU/mL (0.340-5.600) 11/15/18 12:57 Ur Specimen Adequacy See below A 11/15/18 14:17 Urine Color Yellow (Yellow) 11/15/18 14:17 Urine Clarity Cloudy (Clear) A 11/15/18 14:17 Urine pH 5.5 pH Units (5.0-8.0) 11/15/18 14:17 Ur Specific [place] 1.024 (1.010-1.025) 11/15/18 14:17 Urine Protein Negative mg/dL (Neg-Trace) 11/15/18 14:17 Urine Glucose (UA) Normal mg/dL (Normal) 11/15/18 14:17 Urine Ketones Negative mg/dL (Negative) 11/15/18 14:17 Urine Blood Negative (Negative) 11/15/18 14:17 Urine Nitrite Negative (Negative) 11/15/18 14:17 Urine Bilirubin Negative (Negative) 11/15/18 14:17 Urine Urobilinogen Normal mg/dL (Normal) 11/15/18 14:17 Ur Leukocyte Esterase Small (Negative) H 11/15/18 14:17 Urine Microscopic RBC 5-15 per hpf (0-3) H 11/15/18 14:17 Urine Microscopic WBC 5-15 per hpf (0-3) H 11/15/18 14:17 Ur Squamous Epith Cells Many per lpf (None-Few) H 11/15/18 14:17 Urine Bacteria Moderate per hpf (None-Few) H 11/15/18 14:17 Hyaline Casts None Seen per lpf (None-Few) 11/15/18 14:17 Ur Culture Indicated? YES (NO) A 11/15/18 14:17 Salicylates < 2.5 mg/dL (15.0-30.0) L 11/15/18 12:57 Urine Opiates Screen Negative ng/mL (Ajdaon=532) 11/15/18 14:17 Ur Buprenorphine Scrn Negative ng/mL (Cutoff=5) 11/15/18 14:17 Acetaminophen < 10 mcg/mL (10-20) L 11/15/18 12:57 Ur Barbiturates Screen Negative ng/mL (Ksrfgo=015) 11/15/18 14:17 Ur Phencyclidine Scrn Negative ng/mL (Cutoff=25) 11/15/18 14:17 Ur Amphetamines Screen Negative ng/mL (Klfwgb=4851) 11/15/18 14:17 U Benzodiazepines Scrn Negative ng/mL (Erdwcf=892) 11/15/18 14:17 Urine Cocaine Screen Negative ng/mL (Cutoff= 300) 11/15/18 14:17 U Marijuana (THC) Screen Negative ng/mL (Cutoff = 50) 11/15/18 14:17 Ur Drug Screen Interp See Below 11/15/18 14:17 Ethyl Alcohol < 10 mg/dL (Less than 10) 11/15/18 12:57 - Impressions Impressions Chest X-Ray 11/15/18 13:03 IMPRESSION: Left basilar airspace opacity which may represent a developing infiltrate. Follow-up to resolution is recommended. D/ / Stefani Moon MD / Stefani Moon MD Interpreting Provider: Stefani Moon MD Head CT 11/15/18 13:03 IMPRESSION: No acute intracranial abnormality. Mild global parenchymal atrophy and chronic microvascular ischemic changes. Mild left maxillary and sphenoid sinusitis. D/ / 11/15/2018 13:43:15 Adama Katz MD / grayson Interpreting Provider: Adama Katz MD Consult Discharge Plan - Plan Referrals: NONE,PCP [Primary Care Provider] - - Attending Attestation I examined this patient and my medical decision-making was reviewed with the Resident Physician. I agree with the documented findings, disposition and treatment plan as described except to the extent set forth below. Patient was awake when I spoke with her. She denies that she intentionally overdosed on insulin. She does think that being [place] of town [place] and not eating consistently combined with her insulin may have resulted in the hypoglycemia. She denies any suicidal thoughts, ideations, or plans at this time and as such does not meet inpatient psychiatric criteria. She denies homicidal ideation. She does acknowledge making a comment about hurting her but says she didn't mean it and was just frustrated that he brought her to the hospital. She has never tried to hurt herself, him, on anyone else. We discussed other treatment options such as additional medications, adjusting her Lamictal, or therapy and she did not feel the need for these at this time. She is wanting to leave and lacks insight into her medical conditions. She denies that she fell last night and then later says that because she is a transplant patient falls are to be expected. She does not appreciate that the falls, somulence, or hypoglycemia could put her in significant danger if she would leave. As such she qualifies for a medical hold but as this is flowing from her metabolic encephalopathy and not her mental health issues this does not qualify for a pink slip or psychiatric hospitalization.
--- NOTE | 2018-11-16 20:00 | Electrocardiograph Report ---
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
[2018-11-16] MEDS: Nicotine 21 MG PATCH.TD24 TD SCH (20:10)
[2018-11-17 03:19] LABS: Alanine Aminotransferase 10 Units/L (7-52); Albumin 4.1 g/dL (3.5-5.7); Albumin/Globulin Ratio 1.6 (1.1-2.2); Alkaline Phosphatase 85 Units/L (34-104); Aspartate Amino Transferase 16 Units/L (13-39); BUN/Creatinine Ratio 17 (6-26); Bilirubin,Direct 0.1 mg/dL (0.0-0.2); Bilirubin,Indirect 0.3 mg/dL (0.0-1.2); Bilirubin,Total 0.4 mg/dL (0.3-1.0); Blood Urea Nitrogen 13 mg/dL (6-20); Calcium 9.3 mg/dL (8.6-10.3); Carbon Dioxide 22 mEq/L (23-29); Chloride 103 mEq/L (98-107); Globulin 2.6 g/dL (2.4-3.5); Glucose 238 mg/dL (70-105); Magnesium 1.6 mg/dL (1.6-2.6); Osmolality,Calculated 296 (280-300); Potassium 4.3 mEq/L (3.5-5.1); Sodium 139 mEq/L (136-145); Total Protein 6.7 g/dL (6.4-8.9); eGFR For African Americans > 60 (> 60); eGFR For Non-African Americans > 60 (> 60)
[2018-11-17 05:31] LABS: Hemoglobin 12.5 g/dL (11.5-15.4)
[2018-11-17 05:33] LABS: Basophils % 0.2 %; Eosinophils # 0.1 K/mcL (0.0-0.6); Eosinophils % 2.1 %; Hematocrit 37.3 % (35.3-44.9); Immature Granulocytes % 0.5 % (0-4); Immature Platelets 3.3 % (1.1-6.1); Lymphocytes # 1.3 K/mcL (0.6-4.6); Lymphocytes % 22.6 %; Mean Corpuscular HGB Conc 33.5 g/dL (31.6-35.5); Mean Corpuscular Hemoglobin 28.2 pg (28.0-33.3); Mean Corpuscular Volume 84.2 fL (83.0-100.0); Mean Platelet Volume 10.7 fL (9.4-12.4); Monocytes # 0.4 K/mcL (0.0-1.3); Monocytes % 6.8 %; Neutrophils # 3.9 K/mcL (1.6-8.9); Red Blood Count 4.43 M/mcL (3.82-4.97); Segmented Neutrophils % 67.8 %; White Blood Count 5.7 K/mcL (4.3-11.1)
[2018-11-17 05:39] LABS: Platelet Count 87 K/mcL (140-400)
[2018-11-17] MEDS: *HR* Heparin 5,000 UNIT/ML VIAL SQ SCH (05:58)
[2018-11-17] MEDS: Insulin LISPRO 300 UNITS/3 ML VIAL SQ SCH (05:59)
[2018-11-17 06:12] VITALS: BP 148/96
--- NOTE | 2018-11-17 08:56 | Discharge Summary ---
- NOTES TO OUTPATIENT PROVIDER Notes to Outpatient Provider: Posthospital discharge for metabolic encephalopathy attributed to drug overdose, polypharmacy Date of Encounter: 11/17/18 Time of Encounter: 08:53 - Discharge Diagnosis (1) Hypoglycemia due to insulin Priority: Primary Status: Acute Assessment and Plan: Resolved patient is more alert awake oriented and conversant she admits to multiple histories of hypoglycemia which she attributes to her given her insulins mixed up giving herself 60 units of Humalog instead of her basal insulin she claims this has been addressed she now has the insulin pens. however she does also admits to being in a stuporous states chronically from her muscle relaxants and psychotropic stated that these medications should not be adjusted or withhold. Numerous attempts were educated patient was futile. Patient's blood glucose was as low as 66 at 2 AM she was administered dextrose improved to 134 at 3:30 and then drop down to 67 at 6 AM indicative of long acting insulin overdose. We will put patient on a D5 half normal saline with 30 of potassium IV fluid at 75 continue Accu-Cheks. Patient did admit that she may have had given herself too much insulin but would not relate this was intentional or unintentional. Given her history of polypharmacy, in a stuporous state of mind she may have accidentally administered to much insulin (2) Acute encephalopathy Priority: Primary Status: Acute Assessment and Plan: Given the recent development of hypoglycemia overnight likely metabolic encephalopathy from insulin overdose which could be intentional or accidental. Improvement appears to be back to baseline, of note yesterday she refused MRI. Workup so far has been unrevealing including CT of the head ammonia level TSH basic metabolic panel and CBC. VBG also unremarkable Suspect metabolic encephalopathy. per subjective information there is a history of stroke with focal deficits although no documented past medical history since she is visiting from out of town. We will obtain a MRI of the head and brain as well as CT of the abdomen and pelvis given a history of liver transplant and the patient elicited painful response with abdomen exam. She was placed on one-to-one (3) Medication overdose Priority: Primary Status: Acute Assessment and Plan: patient is more alert awake oriented and conversant she admits to multiple histories of hypoglycemia which she attributes to her given her insulins mixed up giving herself 60 units of Humalog instead of her basal insulin she claims this has been addressed she now has the insulin pens. however she does also admits to being in a stuporous states chronically from her muscle relaxants and psychotropic stated that these medications should not be adjusted or withhold. Numerous attempts were educated patient was futile. Given the findings of hypoglycemia overnight as stated above it is quite likely patient may have intentionally or accidentally administered to much insulin. Urine toxicology was negative there is concern for intentional OD and suicide, she will be placed on medical hold, pending psych consult discussed case with the psychiatrist they will see patient today, appreciate psych input Qualifiers: Encounter type: initial encounter Injury intent: undetermined intent Qualified Code(s): T50.904A - Poisoning by unspecified drugs, medicaments and biological substances, undetermined, initial encounter (4) Polypharmacy Priority: Secondary Status: Acute Assessment and Plan: patient is more alert awake oriented and conversant she admits to multiple histories of hypoglycemia which she attributes to her given her insulins mixed up giving herself 60 units of Humalog instead of her basal insulin she claims this has been addressed she now has the insulin pens. however she does also admits to being in a stuporous states chronically from her muscle relaxants and psychotropic stated that these medications should not be adjusted or withhold. Numerous attempts were educated patient was futile. per conversation with the ED staff, there is concern for polypharmacy (5) DVT prophylaxis Priority: Secondary Status: Acute Assessment and Plan: Heparin subcutaneous, discharged today (6) Hx of liver transplant Priority: Secondary Status: Acute Assessment and Plan: She does have noticeable surgical scars on exam we will continue her antirejection medications okay to use home meds, given her liver transplant she stated she never drinks alcohol, alcohol level was unremarkable on admission (7) Diabetes Priority: Secondary Status: Acute Assessment and Plan: A1c was 7.1, as aforementioned she was hypoglycemic overnight continue insulin per protocol, blood glucose has improved. Resolved patient is more alert awake oriented and conversant she admits to multiple histories of hypoglycemia which she attributes to her given her insulins mixed up giving herself 60 units of Humalog instead of her basal insulin she claims this has been addressed she now has the insulin pens. however she does also admits to being in a stuporous states chronically from her muscle relaxants and psychotropic stated that these medications should not be adjusted or withhold. Numerous attempts were educated patient was futile. Qualifiers: Diabetes mellitus type: type 2 Diabetes mellitus chcf insulin use: with oysterman use Diabetes mellitus complication status: with neurologic complications Diabetes mellitus complication detail: with polyneuropathy Qualified Code(s): E11.42 - Type 2 diabetes mellitus with diabetic polyneuropathy; Z79.4 - salvage determiner (current) use of insulin Hospital course: Ms. Morejon is a 58 year old female was hospitalized for acute metabolic encephalopathy, there was concerns for polypharmacy. she refused initial workup with MRI, a laboratory workup was unyielding including a urine toxicology screen TSH. The night of her Day one hospitalization she became hypoglycemic requiring several boluses of dextrose. Today at discharge patient is more alert awake oriented and conversant she admits to multiple histories of hypoglycemia which she attributes to her given her insulins mixed up giving herself 60 units of Humalog instead of her basal insulin she claims this has been addressed she now has the insulin pens. however she does also admits to being in a stuporous states chronically from her muscle relaxants and psychotropic stated that these medications should not be adjusted or withhold. Numerous attempts were educated patient was futile. Discharge discussed with: patient - Time Spent with Patient Total time spent providing and/or coordinating discharge services:37 mins Specific discharge activities: Please make sure you follow up with your PCP to make sure your medications are appropriately adjusted, Pay Attention to your insulin therapy and do not skip meals - Discharge Medications Prescriptions: Continued Tacrolimus [Prograf] 3 mg PO BID Levothyroxine [Synthroid] 125 mcg PO 0630 Insulin Degludec [Tresiba Flextouch U-200] 60 unit SQ QAM Pantoprazole Sodium [Protonix] 40 mg PO BID Mycophenolate Mofetil [Cellcept] 500 mg PO BID Losartan [Cozaar] 25 mg PO DAILY Insulin LISPRO [Humalog Kwikpen U-100] 0 unit SQ TIDWM amLODIPine [Norvasc] 10 mg PO DAILY Silver Sulfadiazine 2 gm TP BID lamoTRIgine [Subvenite] 50 mg PO TID Albuterol Sulfate [Proventil Inhaler] 0 puff IH Q6HR PRN PRN Reason: SOB/WHEEZING Multivit with Iron,Hematinic [Central-Dhara] 1 each PO DAILY Budesonide/Formoterol 80/4.5 [Symbicort 80/4.5] 2 puff IH BID Pravastatin Sodium [Pravachol] 80 mg PO DAILY Calcium Carbonate/Vitamin D3 [Calcium 500-Vit D3 200 Caplet] 1 each PO BID Pregabalin [Lyrica] 150 mg PO TID Fluticasone Propionate Nasal [Flonase] 100 mcg NS DAILY Acetaminophen/Butalbital/Caffe [Fioricet] 1 each PO Q8H PRN PRN Reason: PAIN/HEADACHE Discontinued Carisoprodol [Soma] 350 mg PO TID PRN PRN Reason: MUSCLE SPASMS Home Medications: Acetaminophen/Butalbital/Caffe [Fioricet] 1 each PO Q8H PRN 11/15/18 [History] Albuterol Sulfate [Proventil Inhaler] 0 puff IH Q6HR PRN 11/15/18 [History] Budesonide/Formoterol 80/4.5 [Symbicort 80/4.5] 2 puff IH BID 11/15/18 [History] Calcium Carbonate/Vitamin D3 [Calcium 500-Vit D3 200 Caplet] 1 each PO BID 11/15/18 [History] Fluticasone Propionate Nasal [Flonase] 100 mcg NS DAILY 11/15/18 [History] Insulin Degludec [Tresiba Flextouch U-200] 60 unit SQ QAM 11/15/18 [History] Insulin LISPRO [Humalog Kwikpen U-100] 0 unit SQ TIDWM 11/15/18 [History] Levothyroxine [Synthroid] 125 mcg PO 0630 11/15/18 [History] Losartan [Cozaar] 25 mg PO DAILY 11/15/18 [History] Multivit with Iron,Hematinic [Central-Dhara] 1 each PO DAILY 11/15/18 [History] Mycophenolate Mofetil [Cellcept] 500 mg PO BID 11/15/18 [History] Pantoprazole Sodium [Protonix] 40 mg PO BID 11/15/18 [History] Pravastatin Sodium [Pravachol] 80 mg PO DAILY 11/15/18 [History] Pregabalin [Lyrica] 150 mg PO TID 11/15/18 [History] Silver Sulfadiazine 2 gm TP BID 11/15/18 [History] Tacrolimus [Prograf] 3 mg PO BID 11/15/18 [History] amLODIPine [Norvasc] 10 mg PO DAILY 11/15/18 [History] lamoTRIgine [Subvenite] 50 mg PO TID 11/15/18 [History] Allergies/Adverse Reactions: Allergy/AdvReac Type Severity Reaction Status Date / Time Zolpidem [From Ambien] AdvReac Itching Verified 11/15/18 13:11 Date of admission: 11/15/18 16:59 Primary care physician: PCP NONE Consults: 11/16/18 08:33 Consult to Psychiatry [CONS] Routine Consulting Provider: Psychiatry Felicia Reason consult: [place] slip on chart Other Other reason and/or additional details: Suicide ideation [place] Slip initiated date and time: 2018 at 1850 Time Notified: 08:35 Call Completed: Yes Discharging clinician: Newton Nichols Anticipated date of discharge: 11/17/18 - Constitutional Vitals: Temp Pulse Resp BP Pulse Ox 97.7 F 92 16 148/96 97 11/17/18 06:00 11/17/18 06:00 11/17/18 06:00 11/17/18 06:00 11/17/18 06:00 Exam: GEN: NAD, A&O x 3, Pleasant and conversant SKIN: [place] warm acyanotic not jaundice HEART: RRR, no murmurs LUNGS: CTA no wheeze or crackles, overall non labored ABDOMEN; Soft, non tender or distended, BS x 4 normactive EXT: No LE edema, Pedal pulses 1+, radial pulses 2+ PSYCH: Mood and affect is appropriate, insight and judgment is questionable - Patient Status Disposition: Home, Self-Care Condition: Good Overall status at discharge: patient is back to baseline - Discharge Instructions Follow Up With: NONE,PCP [Primary Care Provider] - Forms: ED Satisfaction Letter - Diet and Activity Activity: resume usual activities as tolerated Diet: diabetic diet
--- NOTE | 2018-11-17 09:15 | Psychiatry Progress Note ---
Date of Encounter: 11/17/18 Time of Encounter: 08:15 Subjective Interval history: Patient is doing very well. She had a good night. She is going to be discharged today. She has no suicidal or homicidal thoughts, ideations, or plans. She is stable on her Lamictal. Review of Systems Psychiatric: Denies: suicidal ideation, homicidal ideation Results - Vital Signs Vital Signs: Temp Pulse Resp BP Pulse Ox 97.7 F 92 16 148/96 97 11/17/18 06:00 11/17/18 06:00 11/17/18 06:00 11/17/18 06:00 11/17/18 06:00 - Labs Labs: Laboratory Results - last 24 hr 11/15/18 11/16/18 11/16/18 23:57 02:29 03:30 WBC RBC Hgb Hct MCV MCH MCHC RDW Plt Count MPV Immature Gran % Seg Neutrophils % Lymphocytes % Monocytes % Eosinophils % Basophils % Neutrophils # Lymphocytes # Monocytes # Eosinophils # Basophils # Immature Plt Fraction Sodium Potassium Chloride Carbon Dioxide BUN Creatinine Est GFR ( Amer) Est GFR (Non-Af Amer) BUN/Creatinine Ratio Glucose POC Glucose 77 66 L 134 H Calculated Osmolality Calcium Magnesium Total Bilirubin Direct Bilirubin Indirect Bilirubin AST ALT Alkaline Phosphatase Ammonia Serum Total Protein Albumin Globulin Albumin/Globulin Ratio Specimen Rejected 11/16/18 11/16/18 11/16/18 04:01 04:39 05:00 WBC RBC Hgb Hct MCV MCH MCHC RDW Plt Count MPV Immature Gran % Seg Neutrophils % Lymphocytes % Monocytes % Eosinophils % Basophils % Neutrophils # Lymphocytes # Monocytes # Eosinophils # Basophils # Immature Plt Fraction Sodium Potassium Chloride Carbon Dioxide BUN Creatinine Est GFR ( Amer) Est GFR (Non-Af Amer) BUN/Creatinine Ratio Glucose POC Glucose 96 77 75 Calculated Osmolality Calcium Magnesium Total Bilirubin Direct Bilirubin Indirect Bilirubin AST ALT Alkaline Phosphatase Ammonia Serum Total Protein Albumin Globulin Albumin/Globulin Ratio Specimen Rejected 11/16/18 11/16/18 11/16/18 05:29 06:01 06:37 WBC RBC Hgb Hct MCV MCH MCHC RDW Plt Count MPV Immature Gran % Seg Neutrophils % Lymphocytes % Monocytes % Eosinophils % Basophils % Neutrophils # Lymphocytes # Monocytes # Eosinophils # Basophils # Immature Plt Fraction Sodium Potassium Chloride Carbon Dioxide BUN Creatinine Est GFR ( Amer) Est GFR (Non-Af Amer) BUN/Creatinine Ratio Glucose POC Glucose 74 67 L 115 H Calculated Osmolality Calcium Magnesium Total Bilirubin Direct Bilirubin Indirect Bilirubin AST ALT Alkaline Phosphatase Ammonia Serum Total Protein Albumin Globulin Albumin/Globulin Ratio Specimen Rejected 11/16/18 11/16/18 11/16/18 07:01 07:28 08:14 WBC RBC Hgb Hct MCV MCH MCHC RDW Plt Count MPV Immature Gran % Seg Neutrophils % Lymphocytes % Monocytes % Eosinophils % Basophils % Neutrophils # Lymphocytes # Monocytes # Eosinophils # Basophils # Immature Plt Fraction Sodium Potassium Chloride Carbon Dioxide BUN Creatinine Est GFR ( Amer) Est GFR (Non-Af Amer) BUN/Creatinine Ratio Glucose POC Glucose 99 83 74 Calculated Osmolality Calcium Magnesium Total Bilirubin Direct Bilirubin Indirect Bilirubin AST ALT Alkaline Phosphatase Ammonia Serum Total Protein Albumin Globulin Albumin/Globulin Ratio Specimen Rejected 11/16/18 11/16/18 11/16/18 08:33 12:02 16:56 WBC RBC Hgb Hct MCV MCH MCHC RDW Plt Count MPV Immature Gran % Seg Neutrophils % Lymphocytes % Monocytes % Eosinophils % Basophils % Neutrophils # Lymphocytes # Monocytes # Eosinophils # Basophils # Immature Plt Fraction Sodium Potassium Chloride Carbon Dioxide BUN Creatinine Est GFR ( Amer) Est GFR (Non-Af Amer) BUN/Creatinine Ratio Glucose POC Glucose 76 118 H 217 H Calculated Osmolality Calcium Magnesium Total Bilirubin Direct Bilirubin Indirect Bilirubin AST ALT Alkaline Phosphatase Ammonia Serum Total Protein Albumin Globulin Albumin/Globulin Ratio Specimen Rejected 11/16/18 11/16/18 11/17/18 19:59 23:13 02:37 WBC RBC Hgb Hct MCV MCH MCHC RDW Plt Count MPV Immature Gran % Seg Neutrophils % Lymphocytes % Monocytes % Eosinophils % Basophils % Neutrophils # Lymphocytes # Monocytes # Eosinophils # Basophils # Immature Plt Fraction Sodium 139 Potassium 4.3 Chloride 103 Carbon Dioxide 22 L BUN 13 Creatinine 0.78 Est GFR ( Amer) > 60 Est GFR (Non-Af Amer) > 60 BUN/Creatinine Ratio 17 Glucose 238 H POC Glucose 270 H 323 H Calculated Osmolality 296 Calcium 9.3 Magnesium 1.6 Total Bilirubin 0.4 Direct Bilirubin 0.1 Indirect Bilirubin 0.3 AST 16 ALT 10 Alkaline Phosphatase 85 Ammonia Serum Total Protein 6.7 Albumin 4.1 Globulin 2.6 Albumin/Globulin Ratio 1.6 Specimen Rejected 11/17/18 11/17/18 11/17/18 02:37 02:37 03:52 WBC 5.7 RBC 4.43 Hgb 12.5 Hct 37.3 MCV 84.2 MCH 28.2 MCHC 33.5 RDW 15.0 H Plt Count 87 L MPV 10.7 Immature Gran % 0.5 Seg Neutrophils % 67.8 Lymphocytes % 22.6 Monocytes % 6.8 Eosinophils % 2.1 Basophils % 0.2 Neutrophils # 3.9 Lymphocytes # 1.3 Monocytes # 0.4 Eosinophils # 0.1 Basophils # 0.0 Immature Plt Fraction 3.3 Sodium Potassium Chloride Carbon Dioxide BUN Creatinine Est GFR ( Amer) Est GFR (Non-Af Amer) BUN/Creatinine Ratio Glucose POC Glucose Calculated Osmolality Calcium Magnesium Total Bilirubin Direct Bilirubin Indirect Bilirubin AST ALT Alkaline Phosphatase Ammonia 53 Serum Total Protein Albumin Globulin Albumin/Globulin Ratio Specimen Rejected Clotted - Impressions ITS Impressions Chest X-Ray 11/15/18 13:03 IMPRESSION: Left basilar airspace opacity which may represent a developing infiltrate. Follow-up to resolution is recommended. D/ / Stefani Moon MD / Stefani Moon MD Interpreting Provider: Stefani Moon MD Head CT 11/15/18 13:03 IMPRESSION: No acute intracranial abnormality. Mild global parenchymal atrophy and chronic microvascular ischemic changes. Mild left maxillary and sphenoid sinusitis. D/ / 11/15/2018 13:43:15 Adama Katz MD / grayson Interpreting Provider: Adama Katz MD Abdomen/Pelvis CT 11/16/18 00:00 IMPRESSION: No acute inflammatory process or evidence of bowel obstruction. Negative 4 nephrolithiasis arthropathy. Moderate colonic diverticulosis. D/ / Juve Starr / Juve Starr Interpreting Provider: Juve Starr Assessment and Plan (1) Metabolic encephalopathy Current visit: Yes Status: Acute Additional Plan: She does not meet pink slip criteria. She is agreeable to following up with her mental health practitioner outpatient. Continue Lamictal. Psychiatry signing off. Risks, benefits, side effects, alternatives discussed w/pt: Yes Patient agreeable to treatment: Yes Consult Discharge Plan - Plan Referrals: NONE,PCP [Primary Care Provider] - Psychiatry Exam - Constitutional Vitals: Temp Pulse Resp BP Pulse Ox 97.7 F 92 16 148/96 97 11/17/18 06:00 11/17/18 06:00 11/17/18 06:00 11/17/18 06:00 11/17/18 06:00 General appearance: age & developmentally appropriate, well-groomed, well- nourished, obese - Musculoskeletal Gait: normal Station: relaxed Strength & Tone: normal for patient - Psychiatric Patient Orientation: Yes Person, Yes Time, Yes Place, Yes Circumstance Level of alertness: Alert Behavior: calm, cooperative Psychomotor activity: Normal Eye Contact: Maintains Eye Contact Mood Description: Euthymic/stable Patient description of mood: Better Affect description: congruent with mood, full range Speech Volume: Normal Speech pattern: normal rate, normal rhythm, normal tone, fluent, spontaneous Language & Vocabulary: consistent with education Thought Process: Linear, Goal Oriented Thought Content: No Suicidal ideation, No Homicidal ideation, No Overt delusions Perceptual Disturbances: No Auditory hallucinations, No Visual hallucinations Attention Span Ability: Capable of Focused Attention Memory Description: Grossly Intact Patient Reliability: Reliable Historian Fund of knowledge: Yes abstraction ability, Yes aware of current events Intelligence Estimate: Average Judgment: Good Insight: Full
[2018-11-17] MEDS: Cholecalciferol (D-3) 1,000 UNIT (25MCG) TABLET PO SCH (09:20)
[2018-11-17] MEDS: amLODIPine 5 MG TABLET PO SCH (09:20)
[2018-11-17] MEDS: Multivit/Ca/Min/Fe/FA 1 TAB TABLET PO SCH (09:20)
[2018-11-17] MEDS: TACROLIMUS 3 MG PO SCH (09:21)
[2018-11-17] MEDS: Pregabalin 75 MG CAPSULE PO SCH (09:21)
[2018-11-17] MEDS: lamoTRIgine 25 MG TABLET PO SCH (09:21)
[2018-11-17] MEDS: Nicotine 21 MG PATCH.TD24 TD SCH (09:22)
[2018-11-17] MEDS: Silver Sulfadiazine 50 GM TUBE TP SCH (09:22)
== END 2018-11-17 09:35 | disposition home or self-care (01) ==
LOC: SUATTDRO → EMEROOARM 12:53 → 3BNU 12:53 → SUATTDRO 16:59 → 3BNU 17:35
PROVIDERS: ADMIT Pharmacist; ATTEND Pharmacist